=== PATIENT | female | born 1960 | race Caucasian/White ===

== ENCOUNTER → 2019-01-15 08:18 | Outpatient (CLI) | payer MEDICARE, OTHER, SELFPAY ==
[2019-01-15 08:13] VITALS: BMI 28.7
--- NOTE | 2019-01-15 08:21 | RAD_ITS ---
STUDY: X-RAY - CERVICAL SPINE REASON FOR EXAM: Female, 58 years old. Pain. TECHNIQUE: 5 view(s) of the cervical spine were obtained. COMPARISON: None FINDINGS: The patient is status post ACDF at levels C5, C6 and C7. There is no plain film evidence of hardware failure or loosening. The lung apices and retropharyngeal and prevertebral soft tissues within the view [id number] appear unremarkable. A punctate calcification on the frontal projection in the region of the carotid bulb may represent atherosclerotic peripheral vascular disease. Consider dedicated sonography of the coronary vasculature. There is no significant change on flexion and extension views versus neutral. There is no fracture lucency, cortical step-off or acute compression deformity. Normal odontoid process. RAD/Cerv Spine 4 or 5 Views IMPRESSION: ACDF at level C5, C6 and C7 in anatomic alignment without evident plain film failure. Mild diffuse spondylosis. Unremarkable lung apices. Stable positioning on flexion and extension versus neutral. . Electronically Signed: Gene Coe MD at 15:49 EDT , Service support ,
== END ==
PROVIDERS: Referring Provider Orthopaedic Surgery; Visit Provider Orthopaedic Surgery
DX: M54.2 Cervicalgia (principal)
CPT/HCPCS: 72050

== ENCOUNTER → 2020-12-10 14:02 | Outpatient (CLI) | payer MEDICARE, OTHER, SELFPAY ==
[2020-12-10 12:36] VITALS: BMI 28.1
--- NOTE | 2020-12-10 14:04 | MRI_ITS ---
STUDY: MRI CERVICAL SPINE WITHOUT CONTRAST REASON FOR EXAM: Female, 60 years old. PAIN TECHNIQUE: Standardized fat and water weighted pulse sequences were obtained in the sagittal and axial planes. COMPARISON: X-ray 12/01/2020 FINDINGS: Normal foramen magnum and brainstem-cervical cord junction. Normal craniovertebral junction. Normal anterior atlantoaxial articulation. Normal odontoid process. Normal cervical lordosis. Normal vertebral bodies and posterior osseous elements. C2-3: Normal endplates. Normal disc height, signal and morphology. Normal central canal and intervertebral neural foramina. C3-4: Right uncovertebral hypertrophy produces moderate right neural foraminal stenosis. No central spinal stenosis. C4-5: Moderate broad disc osteophyte complex and bilateral uncovertebral hypertrophy produces moderate spinal stenosis with abutment the central spinal cord and mild bilateral neural foraminal stenosis. C5-6: Status post anterior cervical discectomy and fusion with anatomic alignment and no spinal stenosis or neural foraminal stenosis. C6-7: Status post anterior cervical discectomy and fusion with anatomic alignment and no spinal stenosis or neural foraminal stenosis. C7-T1: Normal endplates. Normal disc height, signal and morphology. Normal central canal and intervertebral neural foramina. Normal cervical cord. Normal visualized soft tissue structures. MRI/Spine Cervical (Routine) IMPRESSION: Status post anterior cervical discectomy and fusion from C5 through C7 with anatomic alignment and degenerative disc disease superior to the site of fusion. Electronically Signed: Juan Bell MD at 16:51 EDT Tel , Service support ,
[2020-12-10 15:11] LABS: Pathologist Comment May follow
[2020-12-10 18:04] LABS: AUTO B FLUID DILUENT BKGD CT WBC <0.1 RBC <0.01 (W<.1,R<.01); Appearance /Synovial Fluid Sl hazy (CLEAR); CRYSTALS, BODY FLUID See PATH REV; Color / Synovial Fluid Yellow (Pale Yellow); Source / Synovial Fluid NG; Source- Body Fluid SYNOVIAL
[2020-12-10 18:07] LABS: Synovial Fld Mononuclear WBC # 0.153 10^3/ul; Synovial Fld Mononuclear WBC % 85.9 %; Synovial Fld Polynuclear WBC # 0.025 10^3/uL; Synovial Fld Polynuclear WBC % 14.1 %
[2020-12-10 18:14] LABS: RBC /Synovial Fluid 16 /mm3 (0)
[2020-12-10 18:26] LABS: Lymph 11 %; Neutrophil 7 % (0-25)
[2020-12-10 18:27] LABS: Monocyte /Synovial Fluid 82 %
[2020-12-10 18:29] LABS: Body Fluid QC Type(s) BF1Q,BF2Q
[2020-12-11 11:12] LABS: Pathologist Review Reviewed
[2020-12-12 13:43] LABS: PROTEIN, SYNOVIAL FLUID 3.4 g/dL (.)
== END ==
PROVIDERS: Orthopaedic Surgery; Referring Provider Orthopaedic Surgery; Visit Provider Orthopaedic Surgery
DX: M54.12 Radiculopathy, cervical region (principal); M17.0 Bilateral primary osteoarthritis of knee
CPT/HCPCS: 72141; 84157; 87070; 87075; 87205; 89050; 89051; 89060

== ENCOUNTER 2023-07-10 12:30 | Outpatient (RCR) | payer MEDICARE, OTHER, SELFPAY ==
--- NOTE | 2023-06-27 11:23 | HP.SP.EVAL ---
History History Date of Eval: 06/26/23 Attending Doctor: ELIDA Reason for Referral: Post concussion syndrome Medical Diagnosis (from [facility]): Cognitive Deficits. Date of Onset of Diagnosis: one month ago approximately. Previous speech therapy: No Other Relevant Medical History/Diagnoses/Surgery: Patient had a shelf fall on her and she lost consciousness. She woke and called a friend who was a escrow secretary who then took her to ER. She stated this was approximately one month ago but unable to tell the date. She reported that prior to this concussion she had 2 previously with one being 9-12 months ago. She reported that she had a photographic memory but has memory deficits now. 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 She continues to be very light sensitive and has headaches. Smoking Status: Never smoker Pain Is pain an issue with your current prescribed condition?: Yes Personal Preferred language: [place] Patient Allergies Allergies Allergies: Allergies cefadroxil [From Duricef] Allergy (Verified 12/01/20 08:30) hives codeine Allergy (Verified 12/01/20 08:30) unknown dicyclomine [From Bentyl] Allergy (Verified 12/01/20 08:30) Nausea hydromorphone [From Dilaudid] Allergy (Verified 12/01/20 08:30) hypertension iodine Allergy (Verified 12/01/20 08:30) rash meperidine [From Demerol] Allergy (Verified 12/01/20 08:30) unknown morphine Allergy (Verified 12/01/20 08:30) unknown nortriptyline Allergy (Verified 12/01/20 08:30) eye pain Penicillins Allergy (Verified 12/01/20 08:30) hives Tetracyclines Allergy (Verified 12/01/20 08:30) unknown Subjective Cog/Ling/Com Subjective Cognitive/Linguistic/Communication: Patient reported that she has been unable to complete wood working as she can not read/determine numbers at this time. She can not think between inches and feet and gets confused by this. She was an avid reader that no longer is able to understand what she is reading and often has to re-read a sentence. Objective Cog/Ling/Com Test Administered Opvvsfckz-Ayzvhpmjkt-Pmyaphyimreoe Assessment Administered: Yes Oqpndndfm-Cegrgkdcef-Itmrqvrlelrzr Assessment: Cognitive ? Linguistic skills were evaluated using patient/family interview, skilled observation and informal evaluation through tasks completed by the patient. Orientation Orientation: Person, Date, Birthdate and Medical Diagnosis Answer Yes/No Questions Simple: WNL Complex: WNL Conversational Tasks Conversational Tasks: WFL Comments: Patient had one time of paraphasia during the session. She reports that almost daily she will say a word wrong. Recently, she reported saying condemn vs commend. Oral Reading Comments: Reading needs further assessed as she is reporting that she has difficulty with reading and reading comprehension. Medication Completing medications independently: Mild Executive Function Comments Comments: Patient reported she has difficulty with multiple things at home such as mowing the lawn and completing tasks. She now has to use a pill box for medications and her roommate must check it. Previously she did not need a pill box and was able to complete her daily medication from bottles. She can not recall is she took them yesterday am. Cognitive Linguistic Comments Comments Comments: -: The patient reported she has significant brain fog and that she has difficult in following conversations. CLQT CLQT CLQT Administered: Yes CLQT: Cognitive Linguistic Quick Test (CLQT) is a criterion - referenced assessment designed for adults between the ages of 18 and 89 with known or suspected neurological dysfuntions. The CLQT is to assess strength and weaknesses in five cognitive domains. Severity ratings are within normal limits, mild, moderate, severe deficits. The subtests are as follows: Date: 06/26/23 Clock Drawing Severity Rating Clock Drawing Severity Rating: WNL CLQT Comments Results: -: Testing was not completed and will be completed during first sessions. The patient reported that she has difficulty with vision but eye doctor stated her vision was fine. She has not seen a neuro-investor relations associate. She was within normal limits for symbol cancellation and symbol trails. She completed mazes but did not follow the direction on the 1st one to not cross any lines. The second was was completed with only one self corrected wrong path. She was unable to comprehend the directions for design generation (this was the last thing completed) even after direction was repeated. Reference: Neuro-QoL instrument Radiation Oncology Patient Plan Plan Plan: Speech therapy is warranted for cognitive deficits following her concussion. She has not at baseline and has significant difficulty with higher level thought processes including problem solving, attention, recall and reading. Recommendations Treatment Warranted: Yes Treatment Warranted: Cognition Progress Prognosis: Good Frequency Frequency: 2x /Week Duration: 2 Months Visits in this POC: 16 Patient/Family Goal Patient/Family Goal: Michelle stated she would like to return to baseline. Goals that are Established Determination:: Goals will be added/modified as deemed necessary and appropriate. Therapy will be discontinued when results of re-evaluation indicate therapy is no longer needed or lack of progress has been documented. Goal #1-5 Goal #1: Michelle will complete medication management activities with 100% accuracy for independent completion for home carry over. Goal #2: Michelle will complete high level executive functioning tasks including but not limited to deduction, problem solving, reasoning and judgement with 90% accuracy on 2/3 consecutive sessions. Goal #3: Michelle will participate in reading/ reading comprehension assessment as well as complete cognitive testing. Education Patient has Indicated that the Following Identified Educational Needs: Cognitively Impaired Patient Instruction Patient Education: Diagnosis, Treatment Plan and Goals Person Taught: Patient Response to teaching: Verbalize understanding and Reinforcement needed
== END 2023-07-10 19:00 ==
LOC: SP 12:30
PROVIDERS: PCP Internal Medicine; Visit Provider Nurse Practitioner
DX: S06.0X9D Concussion with loss of consciousness of unspecified duration, subsequent encounter (principal); R41.89 Other symptoms and signs involving cognitive functions and awareness; F07.81 Postconcussional syndrome
CPT/HCPCS: 92507; 92523